=== PATIENT | male | born 1990 | race Caucasian/White ===

== ENCOUNTER 2019-12-05 18:05 | Emergency (ER) | payer OTHER ==
[~2019-12-05] VITALS: Ht 182.9 cm; Wt 68.5 kg
[2019-12-05] MEDS ORDERED: DEPAKOTE ER500 M1 PO (18:27)
[2019-12-05] MEDS ORDERED: INDERAL LA120 M1 PO (18:27)
[2019-12-05] MEDS ORDERED: INVEGA SUS156 MG/1 M IM (18:27)
[2019-12-05] MEDS ORDERED: NORCO 5-325 TA1 EAC2 PO (19:07)
[2019-12-05] MEDS ORDERED: IBU600 MG PER TUBE (19:10)
[2019-12-05 20:15] VITALS: BP 122/74
== END 2019-12-05 20:15 | disposition home or self-care (01) ==
LOC: ER 18:05
DX: S62.396A Other fracture of fifth metacarpal bone, right hand, initial encounter for closed fracture (principal); F17.210 Nicotine dependence, cigarettes, uncomplicated; Z79.899 Other long term (current) drug therapy; W22.8XXA Striking against or struck by other objects, initial encounter; Y93.89 Activity, other specified; Y92.89 Other specified places as the place of occurrence of the external cause; Y99.8 Other external cause status